=== PATIENT | female | born 1970 | race African-American/Black ===

== ENCOUNTER 2023-08-07 17:38 | Inpatient (IN) | payer BC, MEDICAID ==
[~2023-08-07] VITALS: Ht 152.4 cm; Wt 57.7 kg
[2023-08-07 18:37] VITALS: RESP 31
[2023-08-07] MEDS: FUROSEMIDE 40MG/4ML VIAL IVP ONE (18:51)
[2023-08-07 20:14] LABS: CLARITY URINE CLEAR (CLEAR); COLOR URINE YELLOW (YELLOW); GLUCOSE URINE NEGATIVE (NEGATIVE); KETONES URINE NEGATIVE (NEGATIVE); LEUKOCYTE ESTERASE URINE NEGATIVE (NEGATIVE); NITRITE URINE NEGATIVE (NEGATIVE); OCCULT BLOOD URINE NEGATIVE (NEGATIVE); PROTEIN URINE NEGATIVE (NEGATIVE); SPECIFIC GRAVITY URINE 1.007 (1.005-1.030); UROBILINOGEN URINE 0.2 E.U./dL (0.2-1.0)
[2023-08-07 20:21] LABS: BASOPHILS % 0.4 % (0.0-2.0); EOSINOPHILS % 0.5 % (0.0-5.0); HEMATOCRIT. 36.8 % (36.0-48.0); HEMOGLOBIN. 11.7 g/dL (12.0-16.0); LYMPHOCYTES % 27.9 % (20.0-50.0); MEAN CORPUSCULAR HEMOGLOBIN 27.1 pg (28.0-32.0); MEAN CORPUSCULAR HGB CONC 31.8 g/dL (31.0-37.0); MEAN CORPUSCULAR VOLUME 85.3 fL (81.0-99.0); MEAN PLATELET VOLUME 8.8 fl (7.4-10.4); MONOCYTES % 7.2 % (2.0-8.0); PLATELET 297 x1000/uL (130-400); RED BLOOD CELL COUNT 4.31 mill/uL (4.2-5.4); WHITE BLOOD COUNT 5.4 x1000/uL (4.5-11.0)
[2023-08-07 20:24] VITALS: RESP 30
[2023-08-07 20:30] LABS: PROTHROMBIN TIME 11.3 sec (9.6-11.0)
[2023-08-07 20:35] LABS: ALANINE AMINOTRANSFERASE 112 IU/L (10-49); ALBUMIN 3.9 g/dL (3.2-4.8); ASPARTATE AMINOTRANSFERASE 72 IU/L (<34); BILIRUBIN TOTAL 0.4 mg/dL (0.1-1.0); CALCIUM 8.5 mg/dL (8.7-10.4); CARBON DIOXIDE 26 mEq/L (21-32); CHLORIDE 108 mEq/L (98-107); GLUCOSE 114 mg/dL (70-105); POTASSIUM 4.3 mEq/L (3.5-5.1); PROTEIN TOTAL 6.8 g/dL (6.0-8.3); SODIUM 138 mEq/L (136-145); UREA NITROGEN BLOOD 24 mg/dL (9-23)
[2023-08-07 20:38] LABS: TROPONIN I HIGH SENSITIVITY 88 ng/L (3.0-34)
[2023-08-07] MEDS: MORPHINE SULFATE 2 MG/ML CPJ (NOT FOR IM USE) IV ONE (20:58)
[2023-08-07] MEDS: ONDANSETRON HCL 4MG/2ML INJ IV NR (21:20)
[2023-08-07 22:00] LABS: TROPONIN I HIGH SENSITIVITY 101 ng/L (3.0-34)
[2023-08-08] VITALS (10 sets, daily range): BP systolic 111–136; BP diastolic 65–95; PULSE 101–115; RESP 20–28; TEMP 97.6–97.9
[2023-08-08] MEDS ORDERED: CLONIDINE 0.1MG TABLET PO PRN (08:45)
[2023-08-08] MEDS: DIPHENHYDRAMINE 50MG/ML VIAL IV PRN (10:09)
[2023-08-08] MEDS: FUROSEMIDE 40MG/4ML VIAL IV SCH (10:09)
[2023-08-08] MEDS ORDERED: NON FORMULARY PATIENT HOME MED XX SCH (10:30)
[2023-08-08 17:37] LABS: TROPONIN I HIGH SENSITIVITY 69 ng/L (3.0-34)
[2023-08-08] MEDS: SACUBITRIL/VALSARTAN 24MG/26MG TABLET PO SCH (18:56)
[2023-08-08] MEDS ORDERED: MDI INH SCH (19:30)
[2023-08-08] MEDS ORDERED: SALMETEROL 50 MCG/INH 28 BLIST DISKUS INHR ORI SCH (19:30)
[2023-08-08] MEDS ORDERED: TIOTROPIUM BROMIDE INH SCH (19:30)
[2023-08-08] MEDS ORDERED: NALOXONE HCL 0.4MG/ML VIAL IV PRN (23:45)
[2023-08-09] VITALS (14 sets, daily range): BP systolic 94–116; BP diastolic 63–84; PULSE 86–127; RESP 19–33; TEMP 97.2–98.5; O2SAT 97–100
[2023-08-09 00:06] LABS: TROPONIN I HIGH SENSITIVITY 70 ng/L (3.0-34)
[2023-08-09] MEDS: IPRATROPIUM BROMIDE (0.02%) 0.5MG/2.5ML NEB HHN SCH (00:24)
[2023-08-09] MEDS: ALBUTEROL (0.083%) 2.5MG/3ML NEB HHN SCH (00:25)
[2023-08-09] MEDS: MORPHINE SULFATE 2 MG/ML CPJ (NOT FOR IM USE) IV PRN (00:39)
[2023-08-09] MEDS: LORAZEPAM 0.5MG TABLET PO PRN (00:40)
[2023-08-09] MEDS: ONDANSETRON HCL 4MG/2ML INJ IV PRN (00:50)
[2023-08-09 06:46] LABS: BASOPHILS % 0.5 % (0.0-2.0); EOSINOPHILS % 1.4 % (0.0-5.0); HEMATOCRIT. 29.2 % (36.0-48.0); HEMOGLOBIN. 9.3 g/dL (12.0-16.0); MEAN CORPUSCULAR HEMOGLOBIN 26.4 pg (28.0-32.0); MEAN CORPUSCULAR HGB CONC 31.9 g/dL (31.0-37.0); MEAN CORPUSCULAR VOLUME 82.5 fL (81.0-99.0); MEAN PLATELET VOLUME 9.1 fl (7.4-10.4); MONOCYTES % 11.1 % (2.0-8.0); PLATELET 220 x1000/uL (130-400); RED BLOOD CELL COUNT 3.54 mill/uL (4.2-5.4); RED CELL DISTRIBUTION WIDTH 14.6 % (11.6-14.6); WHITE BLOOD COUNT 5.1 x1000/uL (4.5-11.0)
[2023-08-09 07:09] LABS: ALANINE AMINOTRANSFERASE 77 IU/L (10-49); ALBUMIN 3.2 g/dL (3.2-4.8); ASPARTATE AMINOTRANSFERASE 53 IU/L (<34); BILIRUBIN TOTAL 0.4 mg/dL (0.1-1.0); CALCIUM 8.1 mg/dL (8.7-10.4); CARBON DIOXIDE 26 mEq/L (21-32); CHLORIDE 108 mEq/L (98-107); GLUCOSE 82 mg/dL (70-105); POTASSIUM 4.3 mEq/L (3.5-5.1); PROTEIN TOTAL 5.6 g/dL (6.0-8.3); SODIUM 139 mEq/L (136-145); UREA NITROGEN BLOOD 26 mg/dL (9-23)
[2023-08-09] MEDS ORDERED: MORPHINE SULFATE 2 MG/ML CPJ (NOT FOR IM USE) IV PRN (07:30)
[2023-08-09] MEDS: ACETAMINOPHEN 325MG TABLET PO PRN (10:08)
[2023-08-09] MEDS: BUMETANIDE 1MG/4ML VIAL IV NR (10:30)
[2023-08-09] MEDS: METOLAZONE 2.5MG TABLET PO NR (12:01)
[2023-08-10] VITALS (10 sets, daily range): BP systolic 99–120; BP diastolic 55–74; PULSE 82–106; RESP 17–30; TEMP 98.1–98.7; O2SAT 97–99
[2023-08-11] VITALS (9 sets, daily range): BP systolic 99–116; BP diastolic 58–85; PULSE 78–98; RESP 18–20; TEMP 97–98.6; O2SAT 99
[2023-08-11 08:10] LABS: BASOPHILS % 0.7 % (0.0-2.0); DIFFERENTIAL COMMENT 0; EOSINOPHILS % 1.6 % (0.0-5.0); HEMATOCRIT. 32.2 % (36.0-48.0); HEMOGLOBIN. 10.3 g/dL (12.0-16.0); MEAN CORPUSCULAR HEMOGLOBIN 26.2 pg (28.0-32.0); MEAN CORPUSCULAR HGB CONC 31.9 g/dL (31.0-37.0); MEAN PLATELET VOLUME 9.2 fl (7.4-10.4); MONOCYTES % 12.5 % (2.0-8.0); NEUTROPHILS % 55.2 % (40.0-76.0); PLATELET 253 x1000/uL (130-400); RED BLOOD CELL COUNT 3.92 mill/uL (4.2-5.4); RED CELL DISTRIBUTION WIDTH 14.9 % (11.6-14.6); WHITE BLOOD COUNT 4.9 x1000/uL (4.5-11.0)
[2023-08-11 08:28] LABS: CARBON DIOXIDE 30 mEq/L (21-32); CHLORIDE 102 mEq/L (98-107); CREATININE 0.7 mg/dL (0.6-1.0); GLUCOSE 92 mg/dL (70-105); POTASSIUM 4.7 mEq/L (3.5-5.1); SODIUM 137 mEq/L (136-145); UREA NITROGEN BLOOD 17 mg/dL (9-23)
[2023-08-11] MEDS: OXYCODONE HCL 5MG TABLET PO PRN (13:32)
[2023-08-12] VITALS (9 sets, daily range): BP systolic 92–112; BP diastolic 58–78; PULSE 70–99; RESP 18–20; TEMP 96.2–98.5; O2SAT 97–98
[2023-08-12] MEDS ORDERED: TRAMADOL 50MG TABLET PO PRN (04:30)
[2023-08-12] MEDS: HYDROXYZINE 25MG TABLET PO PRN (04:32)
[2023-08-12 07:29] LABS: BASOPHILS % 0.6 % (0.0-2.0); EOSINOPHILS % 1.9 % (0.0-5.0); HEMATOCRIT. 30.5 % (36.0-48.0); HEMOGLOBIN. 9.6 g/dL (12.0-16.0); LYMPHOCYTES % 41.8 % (20.0-50.0); MEAN CORPUSCULAR HEMOGLOBIN 25.9 pg (28.0-32.0); MEAN CORPUSCULAR HGB CONC 31.5 g/dL (31.0-37.0); MEAN CORPUSCULAR VOLUME 82.2 fL (81.0-99.0); MEAN PLATELET VOLUME 9.2 fl (7.4-10.4); MONOCYTES % 13.6 % (2.0-8.0); NEUTROPHILS % 42.1 % (40.0-76.0); PLATELET 230 x1000/uL (130-400); RED BLOOD CELL COUNT 3.71 mill/uL (4.2-5.4); WHITE BLOOD COUNT 3.5 x1000/uL (4.5-11.0)
[2023-08-12 07:46] LABS: CALCIUM 7.8 mg/dL (8.7-10.4); CARBON DIOXIDE 30 mEq/L (21-32); CHLORIDE 104 mEq/L (98-107); CREATININE 0.8 mg/dL (0.6-1.0); GLUCOSE 79 mg/dL (70-105); POTASSIUM 4.6 mEq/L (3.5-5.1); SODIUM 138 mEq/L (136-145); UREA NITROGEN BLOOD 18 mg/dL (9-23)
[2023-08-12] MEDS: BUDESONIDE 0.5MG/2ML NEB HHN SCH (15:45)
[2023-08-12] MEDS: GUAIFENESIN-DM 200MG-20MG/10ML UDC PO NR (17:26)
[2023-08-12 18:25] LABS: CLARITY URINE CLEAR (CLEAR); COLOR URINE YELLOW (YELLOW); GLUCOSE URINE NEGATIVE (NEGATIVE); KETONES URINE NEGATIVE (NEGATIVE); LEUKOCYTE ESTERASE URINE NEGATIVE (NEGATIVE); NITRITE URINE NEGATIVE (NEGATIVE); OCCULT BLOOD URINE NEGATIVE (NEGATIVE); PH URINE 7.5 (4.5-8.0); PROTEIN URINE NEGATIVE (NEGATIVE); SPECIFIC GRAVITY URINE 1.017 (1.005-1.030)
[2023-08-13] VITALS (7 sets, daily range): BP systolic 107–156; BP diastolic 66–79; PULSE 71–98; RESP 16–30; TEMP 96.1–97.9; O2SAT 99–100
[2023-08-13] MEDS: GUAIFENESIN-DM 200MG-20MG/10ML UDC PO PRN (00:27)
[2023-08-13 07:14] LABS: BASOPHILS % 1.1 % (0.0-2.0); EOSINOPHILS % 1.5 % (0.0-5.0); HEMATOCRIT. 34.3 % (36.0-48.0); HEMOGLOBIN. 10.7 g/dL (12.0-16.0); LYMPHOCYTES % 32.8 % (20.0-50.0); MEAN CORPUSCULAR HEMOGLOBIN 26.3 pg (28.0-32.0); MEAN CORPUSCULAR HGB CONC 31.3 g/dL (31.0-37.0); MEAN PLATELET VOLUME 9.2 fl (7.4-10.4); MONOCYTES % 12.2 % (2.0-8.0); NEUTROPHILS % 52.4 % (40.0-76.0); PLATELET 276 x1000/uL (130-400); RED BLOOD CELL COUNT 4.08 mill/uL (4.2-5.4); RED CELL DISTRIBUTION WIDTH 14.8 % (11.6-14.6); WHITE BLOOD COUNT 4.3 x1000/uL (4.5-11.0)
[2023-08-13 07:40] LABS: CALCIUM 8.6 mg/dL (8.7-10.4); CARBON DIOXIDE 26 mEq/L (21-32); CHLORIDE 104 mEq/L (98-107); GLUCOSE 98 mg/dL (70-105); POTASSIUM 4.9 mEq/L (3.5-5.1); SODIUM 137 mEq/L (136-145); UREA NITROGEN BLOOD 21 mg/dL (9-23)
[2023-08-13 10:05] LABS: BG BASE EXCESS 1.1 mmol/L (-2.0-2.0); BG CARBOXYHEMOGLOBIN 0.3 % (0.5-1.5); BG DEOXYHEMOGLOBIN 2.2 % (0.0-5.0); BG FRACTION INSPIRED OXYGEN 21; BG HCO3 ACT 25.7 mmol/L (22.0-26.0); BG METHEMOGLOBIN 0.2 % (0.0-1.5); BG OXYGEN SATURATION 97.8 % (92.0-98.5); BG OXYHEMOGLOBIN 97.3 % (94.0-97.0); BG PH 7.415 (7.350-7.450); BG PO2 106.6 mmHg (75.0-100.0); BG SAMPLE SITE LEFT RADIAL; BG VENT MODE ROOM AIR
[2023-08-13] MEDS ORDERED: ALBU18HF2 IH (12:10)
[2023-08-13 17:11] LABS: *AMPHETAMINES SCREEN URINE NEGATIVE (NEGATIVE); *BARBITURATES SCREEN URINE NEGATIVE (NEGATIVE); *BENZODIAZEPINES SCREEN URINE NEGATIVE (NEGATIVE); *COCAINE SCREEN URINE NEGATIVE (NEGATIVE); CANNABINOID URINE SCREEN NEGATIVE (NEGATIVE); ECSTASY MDMA SCREEN URINE NEGATIVE (NEGATIVE); METHADONE URINE SCREEN Neg (NEGATIVE); OPIATES URINE SCREEN NEGATIVE (NEGATIVE); PHENCYCLIDINE URINE SCREEN NEGATIVE (NEGATIVE)
[2023-08-14] VITALS (8 sets, daily range): BP systolic 95–121; BP diastolic 49–75; PULSE 78–104; RESP 18–25; TEMP 97.9–98.4; O2SAT 99
[2023-08-14] MEDS ORDERED: LORAZEPAM 0.5MG TABLET PO PRN (06:30)
[2023-08-14] MEDS ORDERED: DIPHENHYDRAMINE 25MG CAPSULE PO PRN (10:15)
[2023-08-14] MEDS: IPRATROPIUM/ALBUTEROL 0.5-3(2.5)MG/3ML NEB HHN PRN (14:07)
== END 2023-08-14 16:34 | disposition home or self-care (01) | DRG 140 ==
LOC: ER 17:38 → 5EST 20:38 → EDBEDREQ 20:44 → EDBEDREQSVC 20:44 → EDBEDREQTM 20:44 → 6EST 08-10 17:20
PROVIDERS: ADMIT Internal Medicine; ATTEND Internal Medicine
PROC: 5A09357 Assistance with Respiratory Ventilation, Less than 24 Consecutive Hours, Continuous Positive Airway Pressure (ICD-10-PCS; principal; 2023-08-07)
PROC: 5A09357 Assistance with Respiratory Ventilation, Less than 24 Consecutive Hours, Continuous Positive Airway Pressure (ICD-10-PCS; 2023-08-13)
DX: J44.1 Chronic obstructive pulmonary disease with (acute) exacerbation (principal); J96.00 Acute respiratory failure, unspecified whether with hypoxia or hypercapnia; I50.43 Acute on chronic combined systolic (congestive) and diastolic (congestive) heart failure; I11.0 Hypertensive heart disease with heart failure; I42.9 Cardiomyopathy, unspecified; E78.5 Hyperlipidemia, unspecified; E11.9 Type 2 diabetes mellitus without complications; G47.33 Obstructive sleep apnea (adult) (pediatric); J98.11 Atelectasis; Z98.84 Bariatric surgery status; Z95.810 Presence of automatic (implantable) cardiac defibrillator; Z88.0 Allergy status to penicillin; Z87.891 Personal history of nicotine dependence
CPT/HCPCS: 36415; 36600; 71045; 74176; 80048; 80053; 80305; 81003; 82375; 82805; 83880; 84484; 85025; 93005; 93306; 93970; 94618; 94640; 94660; 99291; C1893; J1200; J1940; J2270; J2405; J3490; J7626